=== PATIENT | female | born 1955 | race Caucasian/White ===

== ENCOUNTER 2018-09-13 05:56 | Day surgery (SDC) | payer OTHER ==
[2018-09-12 10:18] LABS: BASOPHILS # (AUTO) 0.05 x10^3/uL (0-0.1); BASOPHILS % (AUTO) 1 % (0-1); EOSINOPHILS # (AUTO) 0.07 x10^3/uL (0-0.4); EOSINOPHILS % (AUTO) 1 % (1-7); LYMPHOCYTES # (AUTO) 2.62 x10^3/uL (1-3.4); LYMPHOCYTES % (AUTO) 30 % (22-44); MD NO; MEAN CORPUSCULAR HEMOGLOBIN 30.6 pg (27.0-34.8); MEAN CORPUSCULAR HGB CONC 33.7 g/dL (32.4-35.8); MEAN CORPUSCULAR VOLUME 90.8 fL (80-100); MONOCYTES % (AUTO) 8 % (2-9); NEUTROPHILS # (AUTO) 5.27 x10^3/uL (1.8-6.8); NEUTROPHILS % (AUTO) 61 % (42-75); PLATELET COUNT 415 x10^3/uL (130-400); RED BLOOD COUNT 4.83 x10^6/uL (3.82-5.3); RED CELL DISTRIBUTION WIDTH 12.6 % (9.6-15.2)
[2018-09-12 10:20] LABS: MICROSCOPIC AUTO
[2018-09-12 10:22] LABS: CULTURE INDICATED? NO
[2018-09-12 10:29] LABS: ALBUMIN 3.8 g/dL (3.4-5.0); ANION GAP 5 mmol/L (5-15); CHLORIDE 107 mmol/L (98-107)
[2018-09-12 10:33] LABS: ALANINE AMINOTRANSFERASE 20 U/L (12-78); ALKALINE PHOSPHATASE 101 U/L (45-117); BILIRUBIN,TOTAL 0.4 mg/dL (0.2-1.0); CREATININE 0.76 mg/dL (0.55-1.02); TOTAL PROTEIN 7.8 g/dL (6.4-8.2)
[~2018-09-13] VITALS: Ht 167.6 cm; Wt 67.0 kg
[~2018-09-13 05:56] MED LIST: BETA60LO4 TD; ESTR2TAB PO; GLUC1TAB55 PO; LOVA40TA2 PO; MOME17SP NS; MULT-717 PO; OMEG-14 PO; OMEP20TA62 PO; ONDA4TAB13 SL; PROG100C16 PO; VALA1000 PO
[2018-09-13] MEDS ORDERED: BUPIVACAINE/PF 0.25% ONE (06:29)
[2018-09-13] MEDS ORDERED: LACTATED RINGERS 1,000 ML IV SCH (06:41)
[2018-09-13 07:03] VITALS: BP 178/78
[2018-09-13] MEDS ORDERED: FENTANYL PF 100 MCG/2ML ONE ×2 (07:59→09:20)
[2018-09-13] MEDS ORDERED: MIDAZOLAM 1 MG/ML, 2ML ONE (07:59)
[2018-09-13] MEDS ORDERED: DEXAMETHASONE 4 MG/ML, 1ML ONE (08:17)
[2018-09-13] MEDS ORDERED: PROPOFOL 10 MG/ML, 20ML ONE (08:17)
[2018-09-13] MEDS ORDERED: ONDANSETRON 2MG/ML, 2ML ONE (08:17)
[2018-09-13] MEDS ORDERED: HYDROmorphone 2 MG/ML, 1ML IVPush PRN (09:00)
[2018-09-13] MEDS ORDERED: MEPERIDINE/PF 25MG/0.5ML IVPush PRN (09:00)
[2018-09-13] MEDS ORDERED: PROMETHAZINE 25 MG/ML, 1ML IV PRN (09:00)
[2018-09-13] MEDS ORDERED: HALOPERIDOL 5 MG/ML IV PRN (09:00)
[2018-09-13] MEDS ORDERED: ACETAMINOPHEN 325 MG TABLET PO PRN (09:00)
[2018-09-13] MEDS ORDERED: ACETAMINOPHEN 650 MG/20.3 ML UDC ONE (09:20)
[2018-09-13] MEDS: FENTANYL PF 100 MCG/2ML IV PRN ×2 (09:24→09:34)
[2018-09-13] MEDS ORDERED: PROMETHAZINE 25 MG SUPP PR ONE (11:19)
[2018-09-13] MEDS ORDERED: PROMETHAZINE 12.5 MG SUPP PR PRN (11:30)
== END 2018-09-13 11:40 | disposition home or self-care (01) ==
LOC: OUT 05:56 → MERGE 08:00 → OUT 11:40
PROVIDERS: ATTEND Obstetrics & Gynecology
DX: N84.0 Polyp of corpus uteri (principal); N95.0 Postmenopausal bleeding; E78.5 Hyperlipidemia, unspecified; Z88.1 Allergy status to other antibiotic agents; Z88.0 Allergy status to penicillin; Z88.8 Allergy status to other drugs, medicaments and biological substances
CPT/HCPCS: 36415; 58558; 71046; 80053; 81001; 85025; 88305; 93005; J1100; J2250; J2405; J2704; J3010; J3490; J7120

== ENCOUNTER 2018-09-20 09:57 | Emergency (ER) | payer OTHER ==
[~2018-09-20] VITALS: Ht 167.6 cm; Wt 67.3 kg
--- NOTE | 2018-09-20 10:14 | NUR ---
PT AMBULATED TO ROOM WITH STEADY GAIT. PT STATED THAT SHE HAD A D&C ON SUNDAY. C/O JUAREZ, HER BP GOING UP AND DOWN, HARD TO BREATH, AND RUQ PAIN. STATED THAT HER MOM OF A BRAIN ANEURYSM. PT IS ALERT, ORIENTED, WITH NAD. PT IS CONNECTED TO THE MONITOR. CALL LIGHT WITHIN REACH. AT BEDSIDE.
[2018-09-20] MEDS ORDERED: ONDANSETRON 2MG/ML, 2ML IVPush ONE (10:30)
[2018-09-20] MEDS ORDERED: HYDROmorphone 2 MG/ML, 1ML IVPush PRN (10:30)
[2018-09-20] MEDS ORDERED: HYDROmorphone 1 MG/ML, 1ML ONE (10:55)
[2018-09-20] MEDS ORDERED: ONDANSETRON 2MG/ML, 2ML ONE (10:55)
--- NOTE | 2018-09-20 11:10 | NUR ---
PT MEDICATED PER ORDER. PT IS RESTING IN BED, RESPIRATIONS EQUAL AND NON LABORED. NAD. PT IS CONNECTED TO THE MONITOR. CALL LIGHT WITHIN REACH.
[2018-09-20 11:18] LABS: BASOPHILS # (AUTO) 0.04 x10^3/uL (0-0.1); BASOPHILS % (AUTO) 1 % (0-1); EOSINOPHILS # (AUTO) 0.33 x10^3/uL (0-0.4); EOSINOPHILS % (AUTO) 4 % (1-7); LYMPHOCYTES # (AUTO) 2.46 x10^3/uL (1-3.4); LYMPHOCYTES % (AUTO) 29 % (22-44); MD NO; MEAN CORPUSCULAR HEMOGLOBIN 31.2 pg (27.0-34.8); MEAN PLATELET VOLUME 7.3 fL (7.4-10.4); MONOCYTES # (AUTO) 0.83 x10^3/uL (0.2-0.8); MONOCYTES % (AUTO) 10 % (2-9); NEUTROPHILS # (AUTO) 4.76 x10^3/uL (1.8-6.8); NEUTROPHILS % (AUTO) 57 % (42-75); PLATELET COUNT 389 x10^3/uL (130-400); RED BLOOD COUNT 4.97 x10^6/uL (3.82-5.3); RED CELL DISTRIBUTION WIDTH 12.8 % (9.6-15.2)
--- NOTE | 2018-09-20 11:26 | NUR ---
US AT BEDSIDE.
[2018-09-20 11:35] LABS: ALANINE AMINOTRANSFERASE 42 U/L (12-78); ALBUMIN 3.7 g/dL (3.4-5.0); ANION GAP 6 mmol/L (5-15); CALCIUM 8.7 mg/dL (8.5-10.1); CHLORIDE 107 mmol/L (98-107); CREATININE 0.81 mg/dL (0.55-1.02)
[2018-09-20 11:40] LABS: ALKALINE PHOSPHATASE 98 U/L (45-117); BILIRUBIN,TOTAL 0.3 mg/dL (0.2-1.0); TOTAL PROTEIN 8.1 g/dL (6.4-8.2); TROPONIN I < 0.015 ng/mL (0.000-0.045)
[2018-09-20 12:49] VITALS: BP 137/66
--- NOTE | 2018-09-20 12:49 | NUR ---
PT AMBULATED TO THE BATHROOM WITH STEADY GAIT.
[2018-09-20] MEDS ORDERED: OMNIPAQUE 350 MG/ML, 150 ML BOTTLE ONE (13:08)
--- NOTE | 2018-09-20 13:47 | NUR ---
Patient given discharge instructions and they have confirmed that they understand the instructions. Patient ambulatory with steady gait.
== END 2018-09-20 13:50 | disposition home or self-care (01) ==
LOC: ED 11:08
DX: R10.84 Generalized abdominal pain (principal); R06.00 Dyspnea, unspecified; R51 Headache; E78.00 Pure hypercholesterolemia, unspecified
CPT/HCPCS: 36415; 70496; 71275; 76700; 80053; 83690; 83880; 84484; 85025; 93005; 96374; 96375; 99284; J1170; J2405; Q9967

== ENCOUNTER 2019-07-20 04:38 | Emergency (ER) | payer MEDICARE, OTHER ==
[~2019-07-20] VITALS: Ht 167.6 cm; Wt 71.0 kg
[2019-07-20 04:41] VITALS: BP 138/109
[2019-07-20] MEDS ORDERED: DIPHENHYDRAMINE 25 MG CAPSULE PO ONE (06:00)
--- NOTE | 2019-07-20 06:23 | NUR ---
PT TO RESTROOM WITH WALKER, NO ASSISTANCE NEEDED. GAIT STRONG AND STEADY. RETURNED TO BED WITHOUT ISSUE. DRESSING TO LEFT FOOT REMOVED, UNDERLAYERS OF GAUZE LEFT IN PLACE AND WET WITH SALINE. SMALL METAL ELI NOTED TO PROTRUDE FROM 4TH TOE. PT DENIES ANY FURTHER NEEDS OR CONCERNS AT THIS TIME, CALL LIGHT IN REACH, ERP NOTIFIED OF STATUS FOR FURTHER EVALUATION.
[2019-07-20] MEDS ORDERED: DIPHENHYDRAMINE 25 MG CAPSULE ONE (06:56)
== END 2019-07-20 07:40 | disposition home or self-care (01) ==
LOC: ED 04:49
DX: L27.0 Generalized skin eruption due to drugs and medicaments taken internally (principal); R50.9 Fever, unspecified
CPT/HCPCS: 99283; J7512; Q0163